=== PATIENT | male | born 1965 | race American Indian/Alaskan Native ===

== ENCOUNTER 2017-05-03 11:33 | Emergency (ER) | payer OTHER ==
[2017-05-03 11:43] VITALS: BP 136/82
[2017-05-03 12:17] LABS: Basophils % (Auto) 1.2 % (0.0-1.8); Eosinophils % (Auto) 0.7 % (0.0-4.3); Hemoglobin 14.7 gm/dl (11.8-15.2); Mean Corpuscular HGB Conc 33 % (32-34); Mean Corpuscular Hemoglobin 29 pg (28-32); Mean Corpuscular Volume 89 fl (84-94); Platelet Count 387 K/mm3 (140-440); Red Blood Count 5.08 M/mm3 (3.65-5.03); Red Cell Distribution Width 13.8 % (13.2-15.2); White Blood Count 7.1 K/mm3 (4.5-11.0)
[2017-05-03 12:38] LABS: Alanine Aminotransferase 14 units/L (7-56); Albumin 4.5 g/dL (3.9-5); Albumin/Globulin Ratio 1.3 %; Alkaline Phosphatase 58 units/L (35-129); Anion Gap 17 mmol/L; BUN/Creatinine Ratio 21.11; Blood Urea Nitrogen 19 mg/dL (9-20); Calcium 9.5 mg/dL (8.4-10.2); Carbon Dioxide 27 mmol/L (22-30); Chloride 102.8 mmol/L (98-107); Glucose 99 mg/dL (75-100); Lipase 22 units/L (13-60); Potassium 4.7 mmol/L (3.6-5.0); Sodium 142 mmol/L (137-145); Total Protein 7.9 g/dL (6.3-8.2)
[2017-05-03 12:56] LABS: Bilirubin,Urine NEG (Negative); Blood,Urine NEG (Negative); Ketones,Urine NEG (Negative); Leukocyte Esterase,Urine NEG (Negative); Mucus,Urine FEW /HPF; Nitrite,Urine NEG (Negative); Protein,Urine <15 mg/dL mg/dL (Negative); Urobilinogen,Urine < 2.0 mg/dL (<2.0)
--- NOTE | 2017-05-03 14:05 | Emergency Department Report ---
ED Abdominal Pain HPI - General Chief Complaint: Abdominal Pain Stated Complaint: ABD PAIN Time Seen by Provider: 05/03/17 13:28 Source: patient Mode of arrival: Ambulatory Limitations: No Limitations - History of Present Illness Initial Comments: 52 year yo male in no significant past medical or surgical history presents to the hospital complaints of abdominal pain 2-3 days. Patient has had periumbilical swelling for "years" but just became painful for the last 2-3 days. Patient denies nausea, vomiting, or fever. Loose stools reported. Patient has not been evaluated by an M.D. for this in the past. - Related Data Allergies Allergy/AdvReac Type Severity Reaction Status Date / Time No Known Allergies Allergy Unverified 05/03/17 11:43 ED Review of Systems ROS: Stated complaint: ABD PAIN Other details as noted in HPI Comment: All other systems reviewed and negative Other: Constitutional: No fevers chills Eyes: No eye pain visual changes ENT: No ear pain or throat pain Neck: Denies pain Respiratory: Denies cough wheezing shortness of breath Cardiovascular: Denies chest pain, palpitations, syncope GI: Denies nausea, vomiting, diarrhea : Denies dysuria Musculoskeletal: Denies back pain Skin: Denies rash, lesions, erythema Neurologic: Denies headache, numbness, weakness Psychiatric: Denies suicidal ideation, hallucinations ED Past Medical Hx - Past Medical History Previous Medical History?: No - Surgical History Past Surgical History?: No - Social History Smoking Status: Never Smoker Substance Use Type: None ED Physical Exam - General Limitations: No Limitations - Other Other exam information: General: No limitations, patient is alert in no acute distress Head exam: Atraumatic, normocephalic Eyes exam: Normal appearance, pupils equal reactive to light, extraocular movements intact ENT: Moist mucous membrane, normal oropharynx Neck exam: Normal inspection, full range of motion, no meningismus nontender Respiratory exam: Clear to auscultation bilateral, no wheezes, rales, crackles Cardiovascular: Normal rate and rhythm, normal heart sounds Abdomen: Soft, nondistended, umbilical hernia, with normal bowel sounds, no rebound, or guarding. Umbilical hernia is reducible in the ED Extremity: Full range of motion normal inspection no deformity Back: Normal Inspection, full range of motion, no tenderness Neurologic: Alert, oriented x3, cranial nerves intact, no motor or sensory deficit Psychiatric: normal affect, normal mood Skin: Warm, dry, intact ED Course Vital Signs 05/03/17 05/03/17 11:41 12:36 Pulse Rate 66 Respiratory 16 18 Rate Blood Pressure 136/82 O2 Sat by Pulse 97 Oximetry - Reevaluation(s) Reevaluation #1: 05/03/17 14:03 Successful reduction of umbilical hernia with improvement in discomfort ED Medical Decision Making - Lab Data Result diagrams: 05/03/17 12:05 05/03/17 12:05 Lab Results 05/03/17 05/03/17 05/03/17 Range/Units 12:05 12:05 12:26 WBC 7.1 (4.5-11.0) K/mm3 RBC 5.08 H (3.65-5.03) M/mm3 Hgb 14.7 (11.8-15.2) gm/dl Hct 45.0 (35.5-45.6) % MCV 89 (84-94) fl MCH 29 (28-32) pg MCHC 33 (32-34) % RDW 13.8 (13.2-15.2) % Plt Count 387 (140-440) K/mm3 Lymph % (Auto) 44.2 H (13.4-35.0) % [place] % (Auto) 5.8 (0.0-7.3) % Eos % (Auto) 0.7 (0.0-4.3) % Baso % (Auto) 1.2 (0.0-1.8) % Lymph # 3.1 (1.2-5.4) K/mm3 [place] # 0.4 (0.0-0.8) K/mm3 Eos # 0.0 (0.0-0.4) K/mm3 Baso # 0.1 (0.0-0.1) K/mm3 Seg Neutrophils % 48.1 (40.0-70.0) % Seg Neutrophils # 3.4 (1.8-7.7) K/mm3 Sodium 142 (137-145) mmol/L Potassium 4.7 (3.6-5.0) mmol/L Chloride 102.8 (98-107) mmol/L Carbon Dioxide 27 (22-30) mmol/L Anion Gap 17 mmol/L BUN 19 (9-20) mg/dL Creatinine 0.9 (0.8-1.5) mg/dL Estimated GFR > 60 ml/min BUN/Creatinine Ratio 21.11 % Glucose 99 (75-100) mg/dL Calcium 9.5 (8.4-10.2) mg/dL Total Bilirubin 0.50 (0.1-1.2) mg/dL AST 15 (5-40) units/L ALT 14 (7-56) units/L Alkaline Phosphatase 58 (35-129) units/L Total Protein 7.9 (6.3-8.2) g/dL Albumin 4.5 (3.9-5) g/dL Albumin/Globulin Ratio 1.3 % Lipase 22 (13-60) units/L Urine Color Yellow (Yellow) Urine Turbidity Clear (Clear) Urine pH 6.0 (5.0-7.0) Ur Specific [place] 1.030 (1.003-1.030) Urine Protein <15 mg/dl (Negative) mg/dL Urine Glucose (UA) Neg (Negative) mg/dL Urine Ketones Neg (Negative) mg/dL Urine Blood Neg (Negative) Urine Nitrite Neg (Negative) Urine Bilirubin Neg (Negative) Urine Urobilinogen < 2.0 (<2.0) mg/dL Ur Leukocyte Esterase Neg (Negative) Urine WBC (Auto) 1.0 (0.0-6.0) /HPF Urine RBC (Auto) 8.0 (0.0-6.0) /HPF Urine Mucus Few /HPF - Medical Decision Making Patient has an appointment with his first primary care doctor tomorrow.. Surgical follow-up will be encouraged. Patient given information regarding over -the-counter umbilical hernia belts. - Differential Diagnosis umbilical hernia, strangulation, incarceration, obstruction, Critical Care Time: No Critical care attestation.: If time is entered above; I have spent that time in minutes in the direct care of this critically ill patient, excluding procedure time. ED Disposition Clinical Impression: Umbilical hernia Qualifiers: Obstruction and gangrene presence: without obstruction or gangrene Qualified Code(s): K42.9 - Umbilical hernia without obstruction or gangrene Disposition: - TO HOME OR SELFCARE Is pt being admited?: No Does the pt Need Aspirin: No Condition: Stable Instructions: Umbilical Hernia (ED) Additional Instructions: Use the umbilical hernia belt as directed. Follow-up with your primary care doctor and surgeon. Take the copy of the labs provided to you follow-up visits. Return if symptoms worsen. Referrals: PRIMARY MD SAILAJA [Primary Care Provider] - 2-3 Days (as scheduled) ALONZO KENNEY MD [Staff Physician] - 3-5 Days (surgeon ) Time of Disposition: 14:06
== END 2017-05-03 14:13 | disposition home or self-care (01) ==
LOC: ED 11:33
DX: K42.9 Umbilical hernia without obstruction or gangrene (principal)
CPT/HCPCS: 36415; 80053; 81001; 83690; 85025; 99283

== ENCOUNTER 2017-05-18 11:09 | Day surgery (SDC) | payer OTHER ==
[~2017-05-18 11:09] MED LIST: ANCEF/STERILE WATER 2 GM/20 ML IV NR; MARCAINE 0.5% INFILTRATI ONE
[2017-05-18] MEDS ORDERED: MARCAINE 0.5% 30 ML INFILTRATI ONE (11:31)
--- NOTE | 2017-05-18 12:20 | Anesthesia Day of Surgery ---
Anesthesia Day of Surgery - Day of Surgery Patient Examined: Yes Patient H&P Reviewed: Yes Patient is NPO: Yes
--- NOTE | 2017-05-18 12:20 | Anesthesia Consultation ---
Anesthesia Consult and Med Hx Date of service: 05/18/17 - Airway Anesthetic Teeth Evaluation: Good, Partials ROM Head & Neck: Adequate Mental/Hyoid Distance: Adequate Mallampati Class: Class II Intubation Access Assessment: Probably Good - Pulmonary Exam CTA: Yes - Cardiac Exam Cardiac Exam: RRR - Pre-Operative Health Status ASA Pre-Surgery Classification: ASA1 Proposed Anesthetic Plan: General - Pre-Anesthesia Comment Pre-Anesthesia Comments: Healthy non-smoker - Pulmonary Hx Smoking: No Hx Sleep Apnea: No (MAYELA PRE SCREEN HIGH RISK) - Cardiovascular System Hx Hypertension: No - Other Systems Hx Cancer: No
[2017-05-18] MEDS ORDERED: ZOFRAN IV PRN (13:00)
[2017-05-18] MEDS ORDERED: PERCOCET 5/325 PO PRN (13:00)
[2017-05-18] MEDS ORDERED: PEPCID PO NR (13:00)
[2017-05-18] MEDS ORDERED: VERSED IV NR (13:00)
[2017-05-18] MEDS ORDERED: LACTATED RINGERS 1,000 ML IV SCH (13:00)
[2017-05-18] MEDS ORDERED: ZOFRAN ONE (13:08)
[2017-05-18] MEDS ORDERED: DECADRON ONE (13:08)
[2017-05-18] MEDS ORDERED: XYLOCAINE MPF 2% ONE (13:08)
[2017-05-18] MEDS ORDERED: ePHEDrine SULFATE ONE (13:16)
[2017-05-18] MEDS ORDERED: DIPRIVAN 10 MG/ML IV ONE (13:21)
[2017-05-18] MEDS ORDERED: ROBINUL ONE (13:22)
[2017-05-18] MEDS ORDERED: SUBLIMAZE ONE (13:22)
[2017-05-18] MEDS ORDERED: NEOSTIGMINE ONE (13:22)
[2017-05-18] MEDS ORDERED: TORADOL ONE (13:23)
[2017-05-18] MEDS ORDERED: MARCAINE 0.5% INFILTRATI ONE ×2 (13:28)
--- NOTE | 2017-05-18 13:47 | Discharge Summary ---
Short Stay Discharge Plan Activity: advance as tolerated, no driving until cleared by PCP Diet: regular Wound: per your surgeon's advice Follow up with: TI BUITRAGO MD [Primary Care Provider] - 7 Days
--- NOTE | 2017-05-18 14:04 | Post Anesthesia Evaluation ---
- Post Anesthesia Evaluation Patient Participated: Yes Airway Patent: Yes Stable Respiratory Function: Yes Nausea/Vomiting: No Temp > 96.8F: Yes Pain Manageable: Yes Adequeate Hydration: Yes Anesthesia Complications: No Block Receding Appropriately: Not Applicable Patient on Ventilator: No
[2017-05-18] MEDS: DILAUDID IV PRN ×2 (14:25→14:35)
[2017-05-18] MEDS ORDERED: NORCO 5/325 PO PRN (14:45)
--- NOTE | 2017-05-18 14:57 | Operative Report ---
PREOPERATIVE DIAGNOSIS: Umbilical hernia with defect about 2 x 2 cm. POSTOPERATIVE DIAGNOSIS: Umbilical hernia with defect about 2 x 2 cm. SURGERY: Laparoscopic repair of umbilical hernia with use of Ventralex graft large. ANESTHESIA: General. BLOOD LOSS: Minimal. FINDINGS: The patient had a defect of about 2 cm in the umbilical area without any adhesions there. We were able to introduce the large Ventralex graft and this was tacked in the usual fashion. BLOOD LOSS: Minimal. DESCRIPTION OF PROCEDURE: With the patient in supine position, he was prepped and draped in usual fashion. I made a small incision in the right mid upper abdomen with the [place] needle, I was able to do CO2 pressure of 15 for which #5 trocar was inserted. With use of the camera, I was able to see the area. I took picture of that and then another trocar was inserted # 5 in the mid right lower quadrant. At that point, I assessed the area. I believed a large Ventralex graft would help, so it was introduced via the umbilical defect itself through a wound into the skin. Then, the graft was tacked from inside using a tacker all around in 2 rows. We were very much satisfied. We took picture of that. After that maneuvering, the trocars were removed one by one, ascertaining no bleeding from the insertion sites. Then, the wounds were closed. I used for that purpose 4-0 Vicryl for the skin. Bandages were applied in a way that will keep the skin over the defect to the inside. An abdominal binder was applied. The patient was then transferred to the recovery room in good condition. JOB# [id number] FIDENCIO/MEGAN FRANCISCO
[2017-05-18 16:20] VITALS: BP 139/93
--- NOTE | 2017-05-18 19:36 | Discharge Summary ---
HOSPITAL COURSE: This admission was an outpatient for surgical intervention. This man was seen in my office about 2 weeks ago because of pain to the umbilical area, was found to have an umbilical hernia with a defect about 2 x 2 cm. Examination otherwise is negative. He was admitted as an outpatient where he underwent a laparoscopic repair of umbilical hernia. I used for that purpose a large Ventralex graft. He did well. He was transferred to the recovery room and then he was discharged home to be seen in my office in about 10 days. He was given prescription for [place] to use 1 every 4-6 hour span for pain. To call me if he has any problem, to keep his abdominal binder. No driving for about 4-5 days. To call me if has any problem otherwise. JOB# [id number] FIDENCIO/MEGAN
== END 2017-05-18 11:10 | disposition home or self-care (01) ==
LOC: OR 11:09
PROVIDERS: ATTEND Surgery
DX: K42.9 Umbilical hernia without obstruction or gangrene (principal)
CPT/HCPCS: 49652; 88304; C1781; J0690; J1100; J1170; J1885; J2250; J2405; J2704; J2710; J3010; J7120

== ENCOUNTER 2019-09-30 23:33 | Emergency (ER) | payer OTHER ==
--- NOTE | 2019-10-01 01:03 | XRay Report ---
Cervical spine 5 views Indication: neck pain Findings: There is no fracture, subluxation, or other radiographic abnormality of the cervical spine. Vertebral soft tissues are unremarkable. Disc space heights are maintained. Signer Name: Markus Del Cid MD Signed: 10/01/2019 12:58 AM Workstation Name: [id number]
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
[2019-10-01 04:27] VITALS: BP 155/97
== END 2019-10-01 04:19 | disposition home or self-care (01) ==
LOC: ED 23:33
DX: S16.1XXA Strain of muscle, fascia and tendon at neck level, initial encounter (principal); R03.0 Elevated blood-pressure reading, without diagnosis of hypertension; X58.XXXA Exposure to other specified factors, initial encounter; Y93.89 Activity, other specified; Y92.89 Other specified places as the place of occurrence of the external cause; Y99.8 Other external cause status
CPT/HCPCS: 72040; 99283

== ENCOUNTER 2019-10-11 16:02 | Emergency (ER) | payer SELFPAY ==
[2019-10-11 18:17] VITALS: BP 146/94
[2019-10-11] MEDS ORDERED: ASPIRIN 325 MG TAB PO ONE (18:17)
--- NOTE | 2019-10-11 18:17 | Event Note ---
ED Screening Note Date of service: 10/11/19 Time: 18:13 ED Screening Note: 54 y o male presents with chest pain feels like someone sitting on his chest around 11am today PMH: none BP elevated This initial assessment/diagnostic orders/clinical plan/treatment(s) is/are subject to change based on patients health status, clinical progression and re- assessment by fellow clinical providers in the ED. Further treatment and workup at subsequent clinical providers discretion. Patient/guardian urged not to elope from the ED as their condition may be serious if not clinically assessed and managed. Initial orders include: repeat BP in triage reduced labs, ekg
[2019-10-11 18:59] LABS: Basophils # (Auto) 0.1 K/mm3 (0.0-0.1); Basophils % (Auto) 0.7 % (0.0-1.8); Eosinophils # (Auto) 0.1 K/mm3 (0.0-0.4); Eosinophils % (Auto) 0.7 % (0.0-4.3); Hematocrit 44.7 % (35.5-45.6); Hemoglobin 14.8 gm/dl (11.8-15.2); Lymphocytes # (Auto) 2.8 K/mm3 (1.2-5.4); Lymphocytes % (Auto) 38.7 % (13.4-35.0); Mean Corpuscular HGB Conc 33 % (32-34); Mean Corpuscular Volume 88 fl (84-94); Monocytes # (Auto) 0.3 K/mm3 (0.0-0.8); Monocytes % (Auto) 4.6 % (0.0-7.3); Platelet Count 387 K/mm3 (140-440); Red Blood Count 5.09 M/mm3 (3.65-5.03)
[2019-10-11 19:16] LABS: BUN/Creatinine Ratio 19; Blood Urea Nitrogen 19 mg/dL (9-20); Calcium 9.6 mg/dL (8.4-10.2); Hemolysis Index 18
--- NOTE | 2019-10-11 19:16 | XRay Report ---
CHEST 2 VIEWS INDICATION / CLINICAL INFORMATION: Chest Pain. COMPARISON: None available. FINDINGS: SUPPORT DEVICES: None. HEART / MEDIASTINUM: No significant abnormality. LUNGS / PLEURA: No significant pulmonary or pleural abnormality. No pneumothorax. ADDITIONAL FINDINGS: No significant additional findings. IMPRESSION: 1. No acute abnormality of the chest. Signer Name: Leobardo Kaminski MD Signed: 10/11/2019 7:11 PM Workstation Name: [id number]
--- NOTE | 2019-10-11 22:04 | Emergency Department Report ---
ED Chest Pain HPI - General Chief Complaint: Chest Pain Stated Complaint: CHEST PAIN/ITCHING/BACK /NECK Time Seen by Provider: 10/11/19 21:03 Source: patient Mode of arrival: Ambulatory Limitations: No Limitations - History of Present Illness Initial Comments: 54-year-old -[place] male patient without significant past medical history presents with complaints of generalized chest pain x 40 minutes prior to arrival. Patient describes the pain as a pressure and states it lasted about 40 minutes without taking any medications. He denies any previous abnormal heart history, DVT/PE, leg pain/swelling, recent long travel, hemoptysis/cough, or s hortness of breath. Patient states his pain was a 4/10 in severity. He has positive family history of heart disease in his father. Patient states he was feeling very stressed at the time due to issues with a client. He also denies any history of asthma or smoking. Patient also complains of itchy rash, worse at night that is noted around his wrists and between his fingers since yesterday. MD Complaint: chest pain -: Sudden, minutes(s) Pain Radiation: none Severity scale (0 -10): 4 Quality: pressure Worsens With: nothing re: denies: nausea, vomting, diaphoresis Other Symptoms: denies: cough, fever, syncope - Related Data Previous Rx's Medication Instructions Recorded Last Taken Type HYDROcodone/APAP 5-325 [[place] 1 each PO Q6HR PRN #24 tablet 05/18/17 Unknown Rx 5/325] Ibuprofen [Motrin 600 MG tab] 600 mg PO Q8H PRN #21 tablet 10/01/19 Unknown Rx Permethrin 5% [Acticin 5% CREAM] 1 applicatio TP ONCE #1 tube 10/11/19 Unknown R x Allergies Allergy/AdvReac Type Severity Reaction Status Date / Time No Known Allergies Allergy Verified 05/13/17 14:47 Heart Score - HEART Score History: Moderately suspicious EKG: Normal Age: 45-65 Risk factors: 1-2 risk factors Troponin: < normal limit HEART Score: 3 - Critical Actions Critical Actions: 0-3 pts:0.9-1.7%risk of adverse cardiac event.Candidate for discharge ED Review of Systems ROS: Stated complaint: CHEST PAIN/ITCHING/BACK /NECK Other details as noted in HPI Constitutional: denies: chills, fever Eyes: denies: vision change Respiratory: denies: cough, orthopnea, shortness of breath Cardiovascular: chest pain. denies: palpitations, edema, syncope Endocrine: denies: excessive sweating Gastrointestinal: denies: abdominal pain, nausea, vomiting Musculoskeletal: denies: back pain Skin: denies: rash, lesions, change in color Hematological/Lymphatic: denies: easy bleeding, easy bruising ED Past Medical Hx - Past Medical History Previous Medical History?: Yes Hx Hypertension: No - Surgical History Past Surgical History?: Yes Additional Surgical History: Hernia repair - Social History Smoking Status: Never Smoker Substance Use Type: None - Medications Home Medications: Home Medications Medication Instructions Recorded Confirmed Last Taken Type HYDROcodone/APAP 5-325 [[place] 1 each PO Q6HR PRN #24 tablet 05/18/17 Unknown Rx 5/325] Ibuprofen [Motrin 600 MG tab] 600 mg PO Q8H PRN #21 tablet 10/01/19 Unknown Rx Permethrin 5% [Acticin 5% CREAM] 1 applicatio TP ONCE #1 tube 10/11/19 Unknown Rx ED Physical Exam - General Limitations: No Limitations General appearance: alert, in no apparent distress - Head Head exam: Present: atraumatic, normocephalic - Eye Eye exam: Present: normal appearance - ENT ENT exam: Present: mucous membranes moist - Neck Neck exam: Present: normal inspection - Respiratory Respiratory exam: Present: normal lung sounds bilaterally. Absent: respiratory distress, wheezes, rales, rhonchi, stridor, chest wall tenderness - Cardiovascular Cardiovascular Exam: Present: regular rate, normal rhythm. Absent: systolic murmur, diastolic murmur, rubs, gallop - GI/Abdominal GI/Abdominal exam: Present: soft. Absent: distended, tenderness - Extremities Exam Extremities exam: Present: normal inspection. Absent: calf tenderness (No swelling/edema noted bilaterally) - Back Exam Back exam: Present: normal inspection, full ROM - Neurological Exam Neurological exam: Present: alert, oriented X3 - Psychiatric Psychiatric exam: Present: normal affect, normal mood - Skin Skin exam: Present: warm, dry, intact, normal color, rash (Small mildly red papules noted on right wrist and right hand. No rash noted in the webs of the hands) ED Course Vital Signs 10/11/19 18:13 Temperature 98.6 F Pulse Rate 81 Respiratory 18 Rate Blood Pressure 146/94 O2 Sat by Pulse 100 Oximetry ED Medical Decision Making - Lab Data Result diagrams: 10/11/19 18:30 10/11/19 18:30 Lab Results 10/11/19 10/11/19 10/11/19 Range/Units 18:30 18:30 21:04 WBC 7.3 (4.5-11.0) K/mm3 RBC 5.09 H (3.65-5.03) M/mm3 Hgb 14.8 (11.8-15.2) gm/dl Hct 44.7 (35.5-45.6) % MCV 88 (84-94) fl MCH 29 (28-32) pg MCHC 33 (32-34) % RDW 14.0 (13.2-15.2) % Plt Count 387 (140-440) K/mm3 Lymph % (Auto) 38.7 H (13.4-35.0) % [place] % (Auto) 4.6 (0.0-7.3) % Eos % (Auto) 0.7 (0.0-4.3) % Baso % (Auto) 0.7 (0.0-1.8) % Lymph # 2.8 (1.2-5.4) K/mm3 [place] # 0.3 (0.0-0.8) K/mm3 Eos # 0.1 (0.0-0.4) K/mm3 Baso # 0.1 (0.0-0.1) K/mm3 Seg Neutrophils % 55.3 (40.0-70.0) % Seg Neutrophils # 4.0 (1.8-7.7) K/mm3 Sodium 140 (137-145) mmol/L Potassium 4.1 (3.6-5.0) mmol/L Chloride 103.0 (98-107) mmol/L Carbon Dioxide 20 L (22-30) mmol/L Anion Gap 21 mmol/L BUN 19 (9-20) mg/dL Creatinine 1.0 (0.8-1.5) mg/dL Estimated GFR > 60 ml/min BUN/Creatinine Ratio 19 % Glucose 145 H (75-100) mg/dL Calcium 9.6 (8.4-10.2) mg/dL Troponin T < 0.010 < 0.010 (0.00-0.029) ng/mL - EKG Data EKG shows normal: sinus rhythm Rate: normal - Radiology Data Radiology results: report reviewed CHEST 2 VIEWS INDICATION / CLINICAL INFORMATION: Chest Pain. COMPARISON: None available. FINDINGS: SUPPORT DEVICES: None. HEART / MEDIASTINUM: No significant abnormality. LUNGS / PLEURA: No significant pulmonary or pleural abnormality. No pneumothorax. ADDITIONAL FINDINGS: No significant additional findings. IMPRESSION: 1. No acute abnormality of the chest. - Medical Decision Making Patient here with complaints of chest pain that lasted about 40 minutes. Pain resolved on its own. He denies any previous heart history. Initial and repeat troponin and EKG are normal. Chest x-ray is normal. CBC and CMP are normal. Heart score = 3. Patient states he has not experienced any further chest pain or shortness of breath since being here in the ED. His vitals are normal and he is well-appearing. Patient is stable for discharge home. Recommend follow-up with cardiology within 2 to 3 days for further evaluation. Discussed very strict return precautions in detail with patient who verbalizes understanding. Critical care attestation.: If time is entered above; I have spent that time in minutes in the direct care of this critically ill patient, excluding procedure time. ED Disposition Clinical Impression: Other chest pain, Rash Disposition: DC-01 TO HOME OR SELFCARE Is pt being admited?: No Condition: Stable Instructions: Chest Pain (ED), Scabies (ED) Prescriptions: Permethrin 5% [Acticin 5% CREAM] 1 applicatio TP ONCE #1 tube Referrals: ALEAH GONZALES MD [Staff Physician] - 10/13/19
== END 2019-10-11 22:45 | disposition home or self-care (01) ==
LOC: ED 16:02
DX: R07.89 Other chest pain (principal); R21 Rash and other nonspecific skin eruption; Z79.899 Other long term (current) drug therapy
CPT/HCPCS: 36415; 71046; 80048; 84484; 85025; 93005; 93010